=== PATIENT | male | born 1970 | race African-American/Black ===

== ENCOUNTER 2022-06-07 12:23 | Emergency (ER) | payer OTHER ==
[2022-06-07] MEDS ORDERED: traMADol HCl 50 MG TAB ONE (13:16)
[2022-06-07] MEDS ORDERED: Ibuprofen 800 MG TAB ONE (13:17)
[2022-06-07] MEDS ORDERED: Sulfameth/Trimethoprim DS 800-160mg TAB ONE (13:17)
[2022-06-07] MEDS ORDERED: Bacitracin 1 PK ONE (13:17)
== END 2022-06-07 13:53 | disposition home or self-care (01) ==
LOC: NAV ERS 12:23
DX: S67.193A Crushing injury of left middle finger, initial encounter (principal); S63.613A Unspecified sprain of left middle finger, initial encounter; S60.132A Contusion of left middle finger with damage to nail, initial encounter; I10 Essential (primary) hypertension; E11.9 Type 2 diabetes mellitus without complications; E78.5 Hyperlipidemia, unspecified; W23.1XXA Caught, crushed, jammed, or pinched between stationary objects, initial encounter